=== PATIENT | female | born 1970 | race Caucasian/White ===

== ENCOUNTER → 2021-03-14 14:59 | Outpatient (CLI) | payer OTHER, SELFPAY ==
[2021-03-14 16:15] LABS: COVID19 -Nasal RAPID Negative (Negative)
== END ==
PROVIDERS: Family Provider Nurse Practitioner Family; Visit Provider Physician Assistant
DX: Z20.822 Contact with and (suspected) exposure to COVID-19 (principal); Z01.812 Encounter for preprocedural laboratory examination
CPT/HCPCS: 87635

== ENCOUNTER 2021-03-15 09:42 | Day surgery (SDC) | payer OTHER, SELFPAY ==
--- NOTE | 2021-03-15 09:55 | PM.HP.1 ---
History of Present Illness History of Present Illness Date Patient Seen: 03/15/21 Time Patient Seen: 09:55 Chief complaint: SDC Narrative: I reviewed my note February 07 no changes. Meds Home Medications and Allergies Allergies Allergy/AdvReac Type Severity Reaction Status Date / Time No Known Allergies Allergy Uncoded 03/15/21 09:38 Review of Systems Review of Systems ROS: Yes All systems reviewed with the patient and are negative except as otherwise documented Exam Const General: cooperative and comfortable Orientation: alert HENMT Head: normocephalic Ears: external ears normal Nose: external nose normal Face and sinus: normal facial exam Mouth: oral mucosae normal Eyes General: appearance normal, both eyes and all related structures Neck Neck: normal visual inspection Chest Chest: normal inspection of the chest Resp Effort & Inspection: normal respiratory effort Cardio Rate: regular rate GI Inspection: normal to inspection Skin General: no rashes or lesions noted and No jaundice Neuro General: patient alert and moves all extremities Cognition: normal cognition Speech: speech normal Extrem General: no pedal edema Psych Appearance: grossly normal Assessment & Plan Assessment & Plan narrative: Chronic intermittent left upper quadrant pain. I suspect constipation is problem. Patient is indicated for colon cancer screening. Time Spent With Patient Critical Care time: I spent a total of [] minutes of critical care time on this patient's care today; this time is exclusive of procedural time.
--- NOTE | 2021-03-15 09:57 | PM.PREOP ---
Pre-operative Note COVID-19 COVID-19 status: Negative Result date/Date tested (Pos, Neg/Pending): 03/14/21 Interval Note History & Physical reviewed/Exam performed by Physician: Yes Changes to H&P: No ASA Class (for procedural sedation): II
[2021-03-15 10:08] VITALS: BP 106/68; PULSE 61; RESP 18; TEMP 36.6; O2SAT 98; BMI 25.1
[2021-03-15] MEDS: SODIUM CHLORIDE 0.9% 1,000 ML 84 ML IV (10:17)
--- NOTE | 2021-03-15 10:50 | PM.OP.COLON ---
Operative Date/Time/Diagnoses Date of procedure: 03/15/21 Time of procedure: 10:50 Pre-op diagnosis: Left upper quadrant pain indicated for colon cancer screening Post-op diagnosis: same Procedure & Clinicians Study performed: Colonoscopy Same procedure as scheduled: Yes Indications: Left upper quadrant pain indicated for colon cancer screening Surgeon: Arden Dobbs Procedure Notes SCOAP/Timeout: Done Procedure in detail: After the risks and benefits were explained, written and verbal informed consent was obtained. The patient was brought into the procedure room and placed into the left lateral decubitus position. Please see nurse senior production planner notes for sedation details. Digital rectal examination was accomplished. The scope was introduced into the patient and advanced under direct visualization to the cecum as identified by the appendiceal orifice and ileocecal valve. The scope was slowly withdrawn to carefully examine the mucosa for any defects or lesions. Comprehensive imaging was accomplished throughout the rectum including the dentate line. The colon was decompressed, the scope was then removed from the patient who tolerated the procedure well. Bowel prep adequate Pediatric colonoscope Scope withdrawal time: 6 minutes Sedation minutes: 17 Specimen(s): none sent Complications: none Impression: Patient had a very challenging configuration. Navigation through to cecum was difficult. No polyps mass lesions or inflammatory features identified throughout. Endoscopic diagnosis Twisty colon Post-procedure Recommendations: Colonoscopy in 10 years Plan for aftercare: 1. Repeat colonoscopy 10 years time sooner should symptoms warrant an earlier exam. 2. Consider a trial of the lower dose of Linzess 3. Follow-up GI clinic Disposition: PACU
[2021-03-15 10:52] VITALS: BP 101/59; PULSE 54; RESP 16; TEMP 36.2; O2SAT 98
[2021-03-15 10:56] VITALS: BP 109/69; PULSE 62; RESP 18; O2SAT 97
[2021-03-15 11:01] VITALS: BP 118/78; PULSE 63; RESP 14; O2SAT 97
== END 2021-03-15 11:20 | disposition home or self-care (01) ==
PROVIDERS: Family Provider Nurse Practitioner Family; Referring Provider Internal Medicine Gastroenterology; Visit Provider Internal Medicine Gastroenterology
PROC: 0DJD8ZZ Inspection of Lower Intestinal Tract, Via Natural or Artificial Opening Endoscopic (ICD-10-PCS; CPT 45378; principal; 2021-03-15 10:30)
DX: R10.12 Left upper quadrant pain (principal)
CPT/HCPCS: 45378; J2704